=== PATIENT | male | born 1935 | race Caucasian/White ===

== ENCOUNTER → 2016-11-22 | Outpatient (CLI) | payer OTHER ==
--- NOTE | 2016-11-22 16:08 | PCVCIMAG ---
APPROVED REPORT Patient Location: Out-Patient Indications Stenosis Doppler Spectral Velocity Analysis PSV / EDVPSV / EDV ECA (R) 130 / 14 cm/sECA (L) 80 / 8 cm/s dICA (R) 87 / 28 cm/sdICA (L) 75 / 21 cm/s Keven (R) 71 / 19 cm/smICA (L) 54 / 19 cm/s pICA (R) 85 / 18 cm/spICA (L) 79 / 18 cm/s Bulb (R) 42 / 14 cm/sBulb (L) 79 / 13 cm/s dCCA (R) 82 / 18 cm/sdCCA (L) 89 / 18 cm/s mCCA (R) 77 / 17 cm/smCCA (L) 81 / 15 cm/s Vert (R) 45 / 10 cm/sVert (L) 52 / 6 cm/s ICA/CCA ICA/CCA Findings The right carotid bulb has moderate heterogeneous plaque. The right proximal internal carotid artery shows <40% stenosis. The right common carotid artery shows <40% stenosis. The right external carotid artery shows no significant stenosis. The left carotid bulb has moderate heterogeneous plaque. The left proximal internal carotid artery shows <40% stenosis. The left common carotid artery shows no significant stenosis. The left external carotid artery shows no significant stenosis. Conclusion 1. Right common and internal carotid artery stenosis (<40%) 2. Left internal carotid artery stenosis (<40%) 3. Antegrade vertebral flow
--- NOTE | 2016-11-22 18:45 | PCVCIMAG ---
APPROVED REPORT Study performed: 11/22/2016 15:46:09 EXAM: Comprehensive 2D, Doppler, and color-flow Echocardiogram Patient Location: Echo lab Status: routine BSA: 2.00 HR: 65 bpmBP: 116/70 mmHg Rhythm: NSR W/ 2nd degree AV block Other Information Study Quality: Adequate Risk Factors: Cardiac Risk Factors: HTN Indications Dizziness and Vertigo CAD 2D Dimensions LVEF(%): 63.50 (>50%) IVSd: 13.96 (7-11mm) LVDd: 38.16 mm PWd: 9.94 (7-11mm) LVDs: 25.23 (25-40mm) Left Atrium: 48.42 (27-40mm) Aortic Root: 34.63 mm LV Single Plane 4CH: 61.33 % LV Single Plane 2CH: 54.00 %Robb's LVEF: 57.67 % Biplane EF: 57.4 % Volumes Left Atrial Volume (Systole) Single Plane 4CH: 40.91 mLSingle Plane 2CH: 88.52 mL LA ESV Index: 65.00 mL/m2 Aortic Valve AoV Peak Edu.: 1.17 m/s AO Peak Gr.: 5.43 mmHgLVOT Max P.73 mmHg LVOT Max V: 0.97 m/s Mitral Valve E/A Ratio: 0.9 MV Decel. Time: 282.67 ms MV E Max Edu.: 0.64 m/s MV A Edu.: 0.73 m/s IVRT: 128.03 ms Pulmonary Valve PV Peak Edu.: 0.86 m/sPV Peak Gr.: 2.99 mmHg Pulmonary Vein P Vein S: 0.27 m/sP Vein A: 0.25 m/s P Vein D: 0.38 m/sP Vein A Dur.: 124.6 msec P Vein S/D Ratio: 0.71 Tricuspid Valve TR Peak Edu.: 2.21 m/s TR Peak Gr.: 19.55 mmHg Left Ventricle The left ventricle is normal size. There is normal LV segmental wall motion. Mild concentric left ventricular hypertrophy. Left ventricular systolic function is normal. The left ventricular ejection fraction is within the normal range. LVEF is 55-60%. The left ventricular diastolic function is normal. Right Ventricle The right ventricle is normal size. The right ventricular systolic function is normal. Atria Left atrium is moderately dilated. The right atrium size is normal. Aortic Valve The aortic valve is normal in structure. No aortic regurgitation is present. There is no aortic valvular stenosis. Mitral Valve The mitral valve is normal in structure. There is no mitral valve regurgitation noted. No evidence of mitral valve stenosis. Tricuspid Valve The tricuspid valve is normal in structure. There is no tricuspid valve regurgitation noted. Pulmonic Valve The pulmonary valve is normal in structure. There is no pulmonic valvular regurgitation. Great Vessels The aortic root is normal in size. IVC is normal in size and collapses with >50% inspiration Pericardium There is no pericardial effusion. <Conclusion> The left ventricle is normal size. LVEF is 55-60%. Mild concentric left ventricular hypertrophy. The left ventricular diastolic function is normal. The right ventricle is normal size. Left atrium is moderately dilated. The aortic valve is normal in structure. There is no mitral valve regurgitation noted. There is no tricuspid valve regurgitation noted. There is no pericardial effusion.
== END | disposition home or self-care (01) ==
LOC: PCVCIMAG 13:54
PROVIDERS: ATTEND Internal Medicine Cardiovascular Disease
DX: I65.23 Occlusion and stenosis of bilateral carotid arteries (principal); I10 Essential (primary) hypertension; I25.10 Atherosclerotic heart disease of native coronary artery without angina pectoris; E78.00 Pure hypercholesterolemia, unspecified; R47.01 Aphasia; I44.1 Atrioventricular block, second degree; K21.9 Gastro-esophageal reflux disease without esophagitis; Z87.891 Personal history of nicotine dependence; Z79.82 Long term (current) use of aspirin; Z91.041 Radiographic dye allergy status
CPT/HCPCS: 93306; 93880; G0463

== ENCOUNTER → 2017-05-02 | Outpatient (CLI) | payer OTHER | END | disposition home or self-care (01) | LOC: PCVCCLINIC 15:19 | DX: I25.10 Atherosclerotic heart disease of native coronary artery without angina pectoris (principal); I10 Essential (primary) hypertension; E78.5 Hyperlipidemia, unspecified; R42 Dizziness and giddiness; I65.29 Occlusion and stenosis of unspecified carotid artery; F32.1 Major depressive disorder, single episode, moderate; R09.89 Other specified symptoms and signs involving the circulatory and respiratory systems; R94.31 Abnormal electrocardiogram [ECG] [EKG]; Z87.891 Personal history of nicotine dependence; Z79.82 Long term (current) use of aspirin | CPT/HCPCS: 80061; 93005; G0463 ==

== ENCOUNTER → 2018-02-22 | Outpatient (CLI) | payer OTHER ==
--- NOTE | 2018-02-22 14:30 | PCVCIMAG ---
EXAM: BILATERAL RENAL ULTRASOUND AND BILATERAL RENAL DUPLEX INDICATION: Hypertension FINDINGS: Right kidney: Length measures 11.2 cm. No hydronephrosis or extensive renal scarring. Right renal duplex: Adequate technical quality. No sonographic evidence of renal artery stenosis. The aortic to renal artery ratio is 2.0. The renal vein is patent. Left kidney: Length measures 11.8 cm. No hydronephrosis or extensive renal scarring. Left renal duplex: Adequate technical quality. No sonographic evidence of renal artery stenosis. The aortic to renal artery ratio is 1.5. The renal vein is patent. Bladder: No obvious abnormalities. IMPRESSION: No significant renal artery stenosis. No hydronephrosis bilaterally. LOC:OFFICE
== END | disposition home or self-care (01) ==
LOC: PCVCIMAG 11:03
PROVIDERS: ATTEND Internal Medicine Cardiovascular Disease
DX: I10 Essential (primary) hypertension (principal)
CPT/HCPCS: 76770; 93975

== ENCOUNTER → 2018-02-22 | Outpatient (CLI) | payer OTHER | END | disposition home or self-care (01) | LOC: PCVCCLINIC 14:00 | PROVIDERS: ATTEND Internal Medicine Cardiovascular Disease | DX: I25.10 Atherosclerotic heart disease of native coronary artery without angina pectoris (principal); E78.00 Pure hypercholesterolemia, unspecified; I10 Essential (primary) hypertension; I44.1 Atrioventricular block, second degree; I65.23 Occlusion and stenosis of bilateral carotid arteries; R42 Dizziness and giddiness; K21.9 Gastro-esophageal reflux disease without esophagitis; Z79.82 Long term (current) use of aspirin | CPT/HCPCS: 93005; G0463 ==

== ENCOUNTER → 2018-08-09 | Outpatient (CLI) | payer OTHER | END | disposition home or self-care (01) | LOC: PCVCCLINIC 10:00 | PROVIDERS: ATTEND Internal Medicine Cardiovascular Disease | DX: I25.10 Atherosclerotic heart disease of native coronary artery without angina pectoris (principal); I10 Essential (primary) hypertension; E78.5 Hyperlipidemia, unspecified; R00.1 Bradycardia, unspecified; I44.1 Atrioventricular block, second degree; F41.9 Anxiety disorder, unspecified; Z91.041 Radiographic dye allergy status; Z88.8 Allergy status to other drugs, medicaments and biological substances | CPT/HCPCS: 36415; 80061; 93005; G0463 ==

== ENCOUNTER → 2018-11-07 | Outpatient (CLI) | payer OTHER | END | disposition home or self-care (01) | LOC: PCVCCLINIC 13:50 | PROVIDERS: ATTEND Internal Medicine Cardiovascular Disease | DX: R07.9 Chest pain, unspecified (principal); R06.02 Shortness of breath; I25.10 Atherosclerotic heart disease of native coronary artery without angina pectoris; I44.0 Atrioventricular block, first degree; R94.31 Abnormal electrocardiogram [ECG] [EKG]; E78.00 Pure hypercholesterolemia, unspecified; I10 Essential (primary) hypertension; G47.00 Insomnia, unspecified; Z91.041 Radiographic dye allergy status; Z88.8 Allergy status to other drugs, medicaments and biological substances | CPT/HCPCS: 36415; 80061; 93005; G0463 ==

== ENCOUNTER → 2018-12-05 | Outpatient (CLI) | payer OTHER ==
--- NOTE | 2018-12-05 15:18 | PCVCIMAG ---
APPROVED REPORT Study performed: 12/05/2018 10:39:39 Exam: Stress Echocardiogram Indication: CAD Stress Nurse: Natalie Mendoza RN Status: routine Ht: 5 ft 8 in Medical History Medical History: HTN, Hyperlipidemia Stress Test Details Stress Test: Exercise stress testing was performed using a Javy protocol. HR Resting HR: 65 bpmMax Heart Rate (APMHR): 137 bpm Max HR Achieved: 134 bpmTarget HR (85% APMHR): 116 bpm % of APMHR: 97 Recovery HR: 57 bpm HR response to stress: Normal HR response to stress BP Resting BP: 140/90 mmHg Max BP: 188/88 mmHg Recovery BP: 172/84 mmHg BP response to stress: Normal blood pressure response to stress. ECG Resting ECG: Sinus Rhythm, AV block Stress ECG: Sinus Rhythm, AV block Recovery ECG: Sinus Rhythm, AV block Clinical Reason for Termination: Maximal effort Exercise duration: 6 min 19 sec Highest Stage Achieved: Stage 2: 2.5 mph at 12% grade. Exercise capacity: 7.90 METs Overall Exercise Capacity for Age: Normal Pre-Stress Echo The resting Echocardiogram showed normal left ventricular contractility with an estimated Ejection Fraction of about >55%. Normal wall motion in all segments on baseline images. Post-Stress Echo The stress Echocardiogram showed normal left ventricular contractility with an estimated Ejection Fraction of about 60-65%. Normal augmentation of wall motion in all segments on post stress images. Clinical No clinical or ECG evidence for ischemia. Conclusion Clinical Response: Non-ischemic Exercise Capacity: Average Stress ECG Response: Non-ischemic Stress Echo Images: Non-ischemic The left ventricle is normal in size and wall thickness in both the rest and stress images. Trace tricuspid regurgitation. No other valvular abnormalities. Other Information Study Quality: Adequate <Conclusion> The left ventricle is normal in size and wall thickness in both the rest and stress images. Trace tricuspid regurgitation. No other valvular abnormalities.
== END | disposition home or self-care (01) ==
LOC: PCVCIMAG 10:41
PROVIDERS: ATTEND Internal Medicine Cardiovascular Disease
DX: I10 Essential (primary) hypertension (principal); E78.5 Hyperlipidemia, unspecified; I65.29 Occlusion and stenosis of unspecified carotid artery; R06.02 Shortness of breath; I25.10 Atherosclerotic heart disease of native coronary artery without angina pectoris; I44.0 Atrioventricular block, first degree; R94.31 Abnormal electrocardiogram [ECG] [EKG]; I44.1 Atrioventricular block, second degree; R42 Dizziness and giddiness; R53.82 Chronic fatigue, unspecified; R00.1 Bradycardia, unspecified; R94.39 Abnormal result of other cardiovascular function study; R20.2 Paresthesia of skin; E78.00 Pure hypercholesterolemia, unspecified; Z87.891 Personal history of nicotine dependence; Z88.8 Allergy status to other drugs, medicaments and biological substances; Z91.041 Radiographic dye allergy status
CPT/HCPCS: 93325; 93351